=== PATIENT | male | born 1980 | race African-American/Black ===

== ENCOUNTER 2019-04-06 04:57 | Emergency (ER) | payer BC ==
[~2019-04-06] VITALS: Ht 177.8 cm; Wt 113.0 kg
[2019-04-06 06:40] VITALS: BP 107/68
== END 2019-04-06 06:43 | disposition home or self-care (01) ==
LOC: ER 04:57
DX: F10.20 Alcohol dependence, uncomplicated (principal); F32.9 Major depressive disorder, single episode, unspecified; F17.210 Nicotine dependence, cigarettes, uncomplicated
CPT/HCPCS: 99283